=== PATIENT | female | born 1990 | race Caucasian/White ===

== ENCOUNTER 2018-06-14 16:23 | Emergency (ER) | payer BC ==
[~2018-06-14] VITALS: Ht 170.2 cm; Wt 63.6 kg
[2018-06-14 18:54] VITALS: BP 118/71
== END 2018-06-14 18:57 | disposition home or self-care (01) ==
LOC: EMS 16:25
DX: S90.122A Contusion of left lesser toe(s) without damage to nail, initial encounter (principal); W22.8XXA Striking against or struck by other objects, initial encounter; Y93.89 Activity, other specified; Y92.89 Other specified places as the place of occurrence of the external cause; Y99.8 Other external cause status
CPT/HCPCS: 99284

== ENCOUNTER 2018-10-06 12:36 | Emergency (ER) | payer SELFPAY ==
[~2018-10-06] VITALS: Ht 170.2 cm; Wt 63.6 kg
[2018-10-06] MEDS ORDERED: ACET-2247 PO (12:42)
[2018-10-06] MEDS ORDERED: ACETAMINOPHEN 500 MG TABLET PO ONE (14:00)
[2018-10-06 14:04] VITALS: BP 126/87
== END 2018-10-06 15:30 | disposition home or self-care (01) ==
LOC: EMS 12:38
DX: S62.634A Displaced fracture of distal phalanx of right ring finger, initial encounter for closed fracture (principal); W22.8XXA Striking against or struck by other objects, initial encounter; Y93.H9 Activity, other involving exterior property and land maintenance, building and construction; Y92.89 Other specified places as the place of occurrence of the external cause; Y99.8 Other external cause status